=== PATIENT | male | born 1955 | race Caucasian/White ===

== ENCOUNTER 2021-09-18 13:48 | Outpatient (CLI) | payer BC ==
[~2021-09-18 13:48] MED LIST: Iopamidol-370 76% 500 ML 1 ML ONE
== END 2021-09-18 13:49 | disposition home or self-care (01) ==
LOC: BICCT 13:48
PROVIDERS: ATTEND Urology
DX: C64.2 Malignant neoplasm of left kidney, except renal pelvis (principal); N28.9 Disorder of kidney and ureter, unspecified; K76.9 Liver disease, unspecified; K44.9 Diaphragmatic hernia without obstruction or gangrene; K57.30 Diverticulosis of large intestine without perforation or abscess without bleeding; Z98.890 Other specified postprocedural states
CPT/HCPCS: 74170; 82565